=== PATIENT | male | born 2000 | race Caucasian/White ===

== ENCOUNTER 2021-01-10 17:30 | Emergency (ER) | payer OTHER ==
[2021-01-10 17:38] VITALS: BP 121/70; PULSE 105; RESP 18; TEMP 98
[2021-01-10] MEDS ORDERED: DIPH,PERTUS(ACELL)TETVAC-LF 0.5 ML VIAL IM ONE (17:52)
[2021-01-10] MEDS ORDERED: TOPICAL SKIN ADHESIVE 1 EACH AMP TOPICAL ONE (17:52)
--- NOTE | 2021-01-10 17:55 | ED ---
Wound/Laceration HPI - General Chief Complaint: Wound/Laceration Stated Complaint: Stomach Lac Time Seen by Provider: 01/10/21 17:41 Source: patient, RN notes reviewed Mode of arrival: ambulatory Limitations: no limitations - History of Present Illness Initial Comments: Patient is a 20-year-old male that presents to the emergency department with a right-sided abdominal laceration. He noted that he was trimming some hedges on paper with an [employer] knife when it slipped and he got himself in the upper right quadrant. He notes a likely emergency department at first but his mom told him to come to get evaluated. His glucose with him and stated that was pretty deep. Wound was cleaned up of blood clots to better evaluate depth. Patient was in no significant pain or discomfort and declined any need for pain medication. He denied any nausea vomiting diarrhea constipation fever fatigue chills weakness numbness tingling chest pendulous breath. - Related Data Allergies Allergy/AdvReac Type Severity Reaction Status Date / Time No Known Allergies Allergy Verified 01/10/21 17:38 Review of Systems ROS Statement: Those systems with pertinent positive or pertinent negative responses have been documented in the HPI. ROS Other: All systems not noted in ROS Statement are negative. Past Medical History Past Medical History: No Reported History History of Any Multi-Drug Resistant Organisms: None Reported Past Surgical History: No Surgical Hx Reported Past Psychological History: No Psychological Hx Reported Smoking Status: Current every day smoker Past Alcohol Use History: None Reported Past Drug Use History: None Reported General Exam Limitations: no limitations General appearance: alert, in no apparent distress Head exam: Present: atraumatic, normocephalic, normal inspection Eye exam: Present: normal appearance, PERRL, EOMI. Absent: scleral icterus, conjunctival injection, periorbital swelling ENT exam: Present: normal exam, mucous membranes moist Neck exam: Present: normal inspection. Absent: tenderness, meningismus, lymphadenopathy Respiratory exam: Present: normal lung sounds bilaterally. Absent: respiratory distress, wheezes, rales, rhonchi, stridor Cardiovascular Exam: Present: regular rate, normal rhythm, normal heart sounds. Absent: systolic murmur, diastolic murmur, rubs, gallop, clicks GI/Abdominal exam: Present: soft, normal bowel sounds. Absent: distended, tenderness, guarding, rebound, rigid Extremities exam: Present: normal inspection, full ROM, normal capillary refill. Absent: tenderness, pedal edema, joint swelling, calf tenderness Back exam: Present: normal inspection Neurological exam: Present: alert, oriented X3, CN II-XII intact Psychiatric exam: Present: normal affect, normal mood Skin exam: Present: warm, dry, intact, normal color, other (Approximate 3 cm laceration with clean linear margins in the right upper quadrant.). Absent: rash Course Vital Signs 01/10/21 17:35 Temperature 98.0 F Pulse Rate 105 H Respiratory 18 Rate Blood Pressure 121/70 O2 Sat by Pulse 100 Oximetry Procedures - Laceration Laceration #1 Consent Obtained: verbal consent Indication: laceration Site: abdomen Size (cm): 3 Description: linear Depth: simple, single layer Sedation/Analgesia: none Pre-repair: irrigated extensively Type of Sutures: other (exofin) Technique: other (Dermabond) Patient Tolerated Procedure: well, no complications Medical Decision Making - Medical Decision Making 20-year-old male with right upper quadrant laceration exact a knife. Declined any need for pain medication. Tetanus immunization ordered as patient was not up-to-date. exofin used to close wound. Case discussed with Dr. Pichardo, the patient to discharge home. Disposition Clinical Impression: Laceration Disposition: HOME SELF-CARE Condition: Stable Instructions (If sedation given, give patient instructions): Laceration (DC) Additional Instructions: Please return to the Emergency Department if symptoms worsen or any other concerns. Try to keep the area dry for at least 3-5 days. If Tegaderm pulls off use Steri-Strips to reinforce. Can take [id number] pain medications as needed for conservative management. Follow-up with primary care in 3-5 days. Is patient prescribed a controlled substance at d/c from ED?: No Referrals: None,Stated [Primary Care Provider] - 1-2 days Time of Disposition: 18:28
== END 2021-01-10 18:45 | disposition home or self-care (01) ==
LOC: EC 17:30
DX: S31.119A Laceration without foreign body of abdominal wall, unspecified quadrant without penetration into peritoneal cavity, initial encounter (principal); F17.200 Nicotine dependence, unspecified, uncomplicated; Z23 Encounter for immunization; W26.0XXA Contact with knife, initial encounter
CPT/HCPCS: 12002; 90471; 90715; 99282